=== PATIENT | female | born 1985 | race Two or more races ===

== ENCOUNTER 2024-01-30 19:42 | Emergency (ER) | payer SELFPAY ==
[~2024-01-30] VITALS: Ht 154.9 cm; Wt 53.0 kg
[2024-01-30] MEDS: LACTULOSE 20Gm/30ML SOLN PO ONE (20:39)
[2024-01-30] MEDS: ONDANSETRON ODT 4 MG TAB PO ONE (20:40)
[2024-01-30] MEDS: ACETAMINOPHEN 500 MG TAB PO ONE (20:40)
[2024-01-30 20:42] VITALS: BP 135/80; PULSE 70; RESP 19; TEMP 98.7; O2SAT 97
[2024-01-30 20:43] LABS: Urine Bacteria FEW /hpf (None Seen); Urine Blood Negative /uL (Negative); Urine Clarity Clear (Clear); Urine Color Light-Yellow (Yellow); Urine Protein, UAD Negative (Negative); Urine Specific Gravity 1.009 (1.001-1.035); Urine Urobilinogen Normal (Negative); Urine WBC 1 /hpf (0 - 5)
[2024-01-30 21:00] LABS: Chloride 106 mmol/L (98-107); Potassium 3.6 mmol/L (3.5-5.1); Sodium 138 mmol/L (136-145)
[2024-01-30 21:01] LABS: Anion Gap 8 (5-15); Carbon Dioxide 24 mmol/L (20-30)
[2024-01-30 21:02] LABS: Calcium 9.3 mg/dL (8.7-10.4)
[2024-01-30 21:06] LABS: Glucose 103 mg/dL (74-106)
[2024-01-30 21:07] LABS: BUN/Creatinine Ratio 9.1 (10.0-20.0); Blood Urea Nitrogen < 5 mg/dL (9-23); Lipase 44 U/L (12-53)
[2024-01-30 21:24] LABS: Basophils # (auto) 0 10 ^3/uL (0-0.2); Basophils % (auto) 0.4 % (0.0-2.0); Eosinophils # (auto) 0.1 10 ^3/uL (0-0.8); Eosinophils % (auto) 0.5 % (0.0-7.0); Hematocrit 38.7 % (36.0-46.0); Hemoglobin 13.5 g/dL (12.2-16.2); Lymphocytes # (auto) 2.1 10 ^3/uL (0.4-5.4); Lymphocytes % (auto) 20.2 % (10.0-50.0); Mean Corpuscular Hemoglobin 31.5 pg (28.0-32.0); Mean Corpuscular Hgb Conc. 34.9 g/dL (32.0-36.0); Mean Corpuscular Volume 90.3 fL (80.0-100.0); Monocytes # (auto) 0.7 10 ^3/uL (0-1.3); Monocytes % (auto) 7.1 % (0.0-12.0); Neutrophils # (auto) 7.4 10 ^3/uL (1.6-8.6); Neutrophils % (auto) 71.8 % (37.0-80.0); Nucleated Red Blood Cells % 0.8 %; Red Blood Cells 4.29 10^6/uL (4.0-5.20); Red Cell Distribution Width 12.9 % (11.8-14.3); White Blood Cell 10.2 10^3/uL (4.4-10.8)
[2024-01-30] MEDS ORDERED: LACT10SO3 PO (22:10)
[2024-01-30] MEDS ORDERED: ZOFR4T PO (22:10)
[2024-01-30] MEDS ORDERED: SODIENE35 RE (22:10)
[2024-01-30] MEDS ORDERED: ACET500T58 PO (22:10)
== END 2024-01-30 22:31 | disposition home or self-care (01) ==
LOC: ER 19:42
DX: K59.00 Constipation, unspecified (principal); R10.2 Pelvic and perineal pain; F17.210 Nicotine dependence, cigarettes, uncomplicated; Z32.02 Encounter for pregnancy test, result negative
CPT/HCPCS: 36415; 74018; 80048; 81001; 81025; 83690; 84702; 85025; 99284; Q0162